=== PATIENT | male | born 1980 | race Caucasian/White ===

== ENCOUNTER 2023-02-05 19:51 | Emergency (ER) | payer MEDICAID, SELFPAY ==
--- NOTE | 2023-02-05 19:53 | ECG_ITS ---
Measurements Intervals [place] Rate: 70 P: 43 CA: 148 QRS: 3 QRSD: 94 T: 22 QT: 396 QTc: 428 Interpretive Statements SINUS RHYTHM NO PREVIOUS ECG AVAILABLE FOR COMPARISON Electronically Signed On 02-06-2023 14:37:06 CDT by Cash Carl M.D.
[2023-02-05 19:55] VITALS: BP 146/88; PULSE 72; RESP 14; TEMP 36.4; O2SAT 99
[2023-02-05 20:12] LABS: Basophils Percent Auto 0.4 % (0.2-1.2); Eosinophils Absolute Auto 0.1 K/mm3 (0-0.3); Eosinophils Percent Auto 0.9 % (0-4.4); Hematocrit 42.1 % (42.0-52.0); Hemoglobin 14.6 g/dL (14.0-18.0); Immature Granulocyte Absolute 0.28 K/mm3 (0.00-0.031); Immature Granulocyte Percent A 3.5 % (0-0.5); Lymphocytes Absolute Auto 1.76 K/mm3 (0.9-3.2); Lymphocytes Percent Auto 22.3 % (18.3-44.2); Mean Corpuscular HGB Conc 34.7 g/dl (32-36); Mean Corpuscular Hemoglobin 31.8 pg (26-34); Mean Corpuscular Volume 91.7 fl (80-100); Mean Platelet Volume 9.7 fl (7.4-10.4); Monocytes Absolute Auto 0.5 K/mm3 (0.1-0.6); Monocytes Percent Auto 6.7 % (2.6-8.5); Neutrophils Absolute Auto 5.2 K/mm3 (1.3-6.7); Neutrophils Percent Auto 66.2 % (45.5-73.1); Platelet Count Result 247 k/mm3 (150-375); Red Blood Count 4.59 M/mm3 (4.6-6.20); Red Cell Distribution Width 12.6 % (11.5-14.5); White Blood Count 7.9 K/mm3 (4.5-10.0)
[2023-02-05 20:22] LABS: Alanine Aminotransferase 38 U/L (6-50); Alkaline Phosphatase 86 U/L (38-126); Anion Gap 15 mmol/L (8-16); Aspartate Amino Transferase 28 U/L (17-59); Bilirubin,Total 0.5 mg/dL (0.2-1.3); Blood Urea Nitrogen 11 mg/dL (9-20); Calcium 8.6 mg/dL (8.4-10.2); Carbon Dioxide 26 mmol/L (22-30); Chloride 100 mmol/L (98-107); Estimated CRCL calculation 107 ml/min; Estimated Glomerular Filt Rate > 60; Glucose 131 mg/dL (65-110); Potassium 3.7 mmol/L (3.4-5.0); Sodium 141 mmol/L (137-145)
[2023-02-05 22:05] VITALS: O2SAT 98
--- NOTE | 2023-02-05 23:58 | ED.GENADULT ---
HPI - General Adult General Chief complaint: Recheck/Abnormal Lab/Rx Stated complaint: dizzy, hypertension, sluggish and do not feel good Time Seen by Provider: 02/05/23 23:30 History of Present Illness HPI narrative: This is a 42-year-old male presenting ED with chief complaint of dizziness. Patient says that when he woke up in the morning he quickly stood up and became dizzy and fell back onto the bed. After that his symptoms resolved. He has noticed that he becomes lightheaded if he stands up too fast. He denies any persistent dizziness or vertigo. Denies double vision dysphagia dysarthria or loss of coordination. Denies other complaints. Related Data Allergies Allergy/AdvReac Type Severity Reaction Status Date / Time No Known Allergies Allergy Verified 02/05/23 22:05 [facility] Past Medical History Medical History (Updated 02/06/23 @ 00:03 by Indio Velasquez MD) HTN (hypertension) Exam Narrative: APPEARANCE: No apparent distress. Head: atraumatic. EYES: EOMI, NOSE: Atraumatic NECK: Trachea midline RESPIRATORY: No increased rate of breathing CARDIOVASCULAR: RRR, ABDOMINAL: Non-distended MUSCULOSKELETAl: No obvious deformities NEURO: Alert. Cranial nerves 2-12 grossly intact. Sensation light touch, motor function cerebellar function intact for 4 extremities. Gait exam was normal. SKIN:: Warm, dry. Normal color PSYCHIATRIC: Normal affect Course Vital Signs Vital signs: Vital Signs Temperature 97.6 F 02/05/23 19:55 Pulse Rate 72 02/05/23 19:55 Respiratory Rate 14 02/05/23 19:55 Blood Pressure 146/88 H 02/05/23 19:55 Pulse Oximetry 99 02/05/23 19:55 Oxygen Delivery Room Air 02/05/23 19:55 Temperature 97.6 F 02/05/23 19:55 Pulse Rate 72 02/05/23 19:55 Respiratory Rate 14 02/05/23 19:55 Blood Pressure 146/88 H 02/05/23 19:55 Pulse Oximetry 98 02/05/23 22:05 Oxygen Delivery Room Air 02/05/23 22:05 Medical Decision Making MDM Narrative Medical decision making narrative: -Presentation: 42-year-old male presenting with lightheadedness when he stands up too quick. neuro exam normal. Vital signs stable. Lightheadedness reproducible when he stands up. -DDX includes but is not limited to: Dehydration, orthostatics, episodic vestibular syndrome -Co-morbidities complicating care: Hypertension -Social determinants of health: unemployed, recently moved to the area, lives with his girlfriend -Hx from independent Sources: girlfriend at bedside -Independent interpretation of studies: laboratory studies normal. Independent EKG interpretation: Rhythm [sinus], Rate 70, [place] -[normal], [place] -[normal], QRS [narrow], QTC [normal], T waves -[negative for concerning inversions], ST Segments - [Negative for concerning elevations] Final interpretations: [Normal Sinus Rhythm] -Shared decision making / Disposition: patient's symptoms are consistent with orthostatic hypotension. Patient has been instructed to drink plenty of fluids. Patient follow up his primary care physician. Vital Signs Vital Signs: Vital Signs Temperature 97.6 F 02/05/23 19:55 Pulse Rate 72 02/05/23 19:55 Respiratory Rate 14 02/05/23 19:55 Blood Pressure 146/88 H 02/05/23 19:55 Pulse Oximetry 99 02/05/23 19:55 Oxygen Delivery Room Air 02/05/23 19:55 Temperature 97.6 F 02/05/23 19:55 Pulse Rate 72 02/05/23 19:55 Respiratory Rate 14 02/05/23 19:55 Blood Pressure 146/88 H 02/05/23 19:55 Pulse Oximetry 98 02/05/23 22:05 Oxygen Delivery Room Air 02/05/23 22:05 Lab Data 02/05/23 20:06 02/05/23 20:06 Labs: Lab Results 02/05/23 Range/Units 20:06 WBC 7.9 (4.5-10.0) K/mm3 RBC 4.59 L (4.6-6.20) M/mm3 Hgb 14.6 (14.0-18.0) g/dL Hct 42.1 (42.0-52.0) % MCV 91.7 (80-100) fl MCH 31.8 (26-34) pg MCHC 34.7 (32-36) g/dl RDW 12.6 (11.5-14.5) % Plt Count 247 (150-375) k/mm3 MPV 9.7 (7.4-10.
== END 2023-02-06 00:17 | disposition home or self-care (01) ==
PROVIDERS: Emergency Provider Emergency Medicine
DX: R42 Dizziness and giddiness (principal); I10 Essential (primary) hypertension
CPT/HCPCS: 36415; 80053; 85025; 85610; 85730; 93005; 99283

== ENCOUNTER 2023-03-27 19:19 | Emergency (ER) | payer MEDICAID, SELFPAY ==
--- NOTE | ~2023-03-27 | XR_ITS ---
EXAMINATION: XR shoulder RT min 2V DATE: 03/27/2023 21:22 INDICATION: Right shoulder injury and pain. TECHNIQUE: 4 views of right shoulder were obtained. COMPARISON: None. FINDINGS: Bone alignment is normal. No fracture. There is moderate osteoarthritis of glenohumeral grant nt and severe osteoarthritis of acromioclavicular joint. IMPRESSION: 1. Polyarticular osteoarthritis. Reviewed, dictated and finalized at location E.
[2023-03-27 19:43] VITALS: BP 150/88; PULSE 69; RESP 15; TEMP 36.9; O2SAT 100
[2023-03-27] MEDS: LIDOCAINE 5% PATCH 1 PATCH TRANSDERM (21:25)
[2023-03-27] MEDS: KETOROLAC 30 MG/ML VIAL (*BKC) IM (21:25)
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
== END 2023-03-27 22:30 | disposition home or self-care (01) ==
PROVIDERS: Emergency Provider Emergency Medicine
DX: S43.401A Unspecified sprain of right shoulder joint, initial encounter (principal); I10 Essential (primary) hypertension; X50.9XXA Other and unspecified overexertion or strenuous movements or postures, initial encounter
CPT/HCPCS: 73030; 96372; 99283; A9270; J1885